=== PATIENT | male | born 1970 | race Caucasian/White ===

== ENCOUNTER 2020-04-29 12:33 | Emergency (ER) | payer OTHER, SELFPAY ==
--- NOTE | ~2020-04-29 | XR_ITS ---
EXAMINATION: XR finger 1st LT min 2V INDICATION: Left first finger pain TECHNIQUE: Four views of the left first finger are obtained. COMPARISON: None available FINDINGS: There is soft tissue swelling of the first finger. Bone alignment is normal. No fracture is identified. IMPRESSION: 1. Soft tissue swelling of the first finger without evidence of underlying osseous abnormality. Reviewed, dictated and finalized at location A. 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 Soft tissue swelling of the first finger without evidence of underlying osse ous abnormality.
[2020-04-29 12:43] VITALS: BP 120/64; PULSE 57; RESP 20; TEMP 36.1; O2SAT 99
[2020-04-29] MEDS: TETANUS,DIPHTHERIA,AC PERTUSSIS ADULT (0.5 ML) BOOSTRIX IM (13:03)
--- NOTE | 2020-04-29 13:38 | ED.SKABFB ---
HPI - Skin/Abscess/Foreign Bdy General Chief complaint: Wound/Laceration Stated complaint: wound/laceration Time Seen by Provider: 04/29/20 13:10 Source: patient and RN notes reviewed Mode of arrival: ambulatory Limitations: no limitations History of Present Illness HPI narrative: Patient presents today complaining of a laceration to his left first finger that was sustained 1 hour prior to arrival. States he was drilling a piece of aluminum on his drill press at home with a piece of aluminum slipped forward and his finger hit the drill bit. He also has a small wound in the webbing between the first and second finger. Denies numbness or tingling in the hand or fingers. Reports mild pain. He has tried no [id number] interventions or medications prior to arrival. MD complaint: laceration Related Data Home Medications Medication Instructions Recorded Confirmed atorvastatin [Lipitor] 80 mg PO DAILY 01/11/19 04/29/20 hydrochlorothiazide 25 mg PO DAILY 01/11/19 04/29/20 metoprolol tartrate [Lopressor] 25 mg PO DAILY 01/11/19 04/29/20 Allergies Allergy/AdvReac Type Severity Reaction Status Date / Time No Known Allergies Allergy Verified 01/11/19 12:29 Review of Systems Review of Systems: Narrative: CONSTITUTIONAL: Denies body aches, fever, chills, or sweats. EYES: Denies visual changes, redness, or discharge. ENT: Denies rhinorrhea, congestion, sore throat, or otalgia. CARDIOVASCULAR: Denies chest pain, palpitations, or edema. RESPIRATORY: Denies cough or dyspnea. GASTROINTESTINAL: Denies abdominal pain, nausea, vomiting, or diarrhea. GENITOURINARY: Denies dysuria or hematuria. SKIN: Denies rash, itching. + Finger laceration MUSCULOSKELETAL: Denies back pain, joint pain, or myalgia. NEUROLOGIC: Denies headache, numbness, tingling, or weakness. PSYCH: Denies depression or anxiety. FORMERLY [facility] Past Medical History Medical History (Updated 04/29/20 @ 14:[address] Funk, [facility], ) Hypercholesterolemia Hypertension Family History Family History (Updated 01/10/16 @ 14:13 by DOCTOR UNKNOWN) Father Family history of elevated blood lipids Social History Social History Smoking status: Never smoker Alcohol intake: current Gender identity (if verbalized by the patient): Male Comments At time of signature, I have reviewed and agree with nursing past medical, surgical, social and family history unless otherwise noted. Please see nursing chart for further information. There is no relevant family history pertinent to the presenting complaint Exam Narrative: Exam Narrative: GENERAL: Well-appearing, well-nourished, and in no acute distress. HEAD: Normocephalic, atraumatic. EYES: EOMI. No redness or drainage. Conjunctivae normal. ENT: Mucous membranes pink and moist. NECK: Normal AROM. CHEST: No respiratory distress. EXTREMITIES: Normal range of motion. No edema. SKIN: Warm, dry, no rash. Capillary refill normal. Normal skin turgor. 1cm round stellate superficial laceration to the base of the medial aspect of the left thumb. No active bleeding. ~0.5cm superficial skin avulsion to the webbing between 1st and 2nd fingers. Full AROM of the 1st finger against resistance. Distal sensation intact. Capillary refill normal. Radial pulse normal. NEURO: No focal deficits. Alert and oriented x3. Gait steady. PSYCH: Normal affect. No signs of depression or anxiety. Course Vital Signs Vital signs: Vital Signs Temperature 96.9 F L 04/29/20 12:43 Pulse Rate 57 L 04/29/20 12:43 Respiratory Rate 20 04/29/20 12:43 Blood Pressure 120/64 04/29/20 12:43 Pulse Oximetry 99 04/29/20 12:43 Temperature 96.9 F L 04/29/20 12:43 Pulse Rate 57 L 04/29/20 12:43 Respiratory Rate 20 04/29/20 12:43 Blood Pressure 120/64 04/29/20 12:43 Pulse Oximetry 99 04/29/20 12:43 Reviewed. Pt has been instructed to follow up with his PCP regarding his elevated blood pressure today. Edson
== END 2020-04-29 13:44 | disposition home or self-care (01) ==
PROVIDERS: Emergency Provider Nurse Practitioner
DX: S61.012A Laceration without foreign body of left thumb without damage to nail, initial encounter (principal); W29.8XXA Contact with other powered hand tools and household machinery, initial encounter; Z23 Encounter for immunization; E78.00 Pure hypercholesterolemia, unspecified; I10 Essential (primary) hypertension
CPT/HCPCS: 12001; 73140; 90471; 90715; 99213; G0463

== ENCOUNTER 2022-03-22 11:56 | Emergency (ER) | payer OTHER, SELFPAY ==
[2022-03-22 12:13] VITALS: BP 144/89; PULSE 67; RESP 18; TEMP 36.4; O2SAT 99
--- NOTE | 2022-03-22 12:26 | ED.EAR ---
HPI - Ear Problem General Chief complaint: Ear Stated complaint: bilateral ear pain Time Seen by Provider: 03/22/22 12:20 Source: patient Mode of arrival: ambulatory Limitations: no limitations History of Present Illness HPI Narrative: Pancho is a 51-year-old male patient presenting to the clinic today with complaints of bilateral ear pain since Friday. He reports he did have his ears cleaned out on Friday and started having right ear pain afterwards. He reports over the last few days the pain has gradually gotten worse. Has been taking some Sudafed to see if this helps alleviate the pressure/pain. Feels as though his ears are congested. Related Data Home Medications Medication Instructions Recorded Confirmed atorvastatin 80 mg tablet (Lipitor) 80 mg PO DAILY 01/11/19 03/22/22 hydrochlorothiazide 25 mg tablet 25 mg PO DAILY 01/11/19 03/22/22 metoprolol tartrate 50 mg tablet 25 mg PO DAILY 01/11/19 03/22/22 (Lopressor) Allergies Allergy/AdvReac Type Severity Reaction Status Date / Time No Known Allergies Allergy Verified 03/22/22 12:22 Review of Systems Review of Systems: Pertinent positives per HPI. Patient denies any fever, chills, rash, headache, visual changes, dizziness, cough, shortness of breath, chest pain, palpitations, nausea, vomiting, diarrhea, constipation, abdominal pain, or any urinary issues. PMFSH Past Medical History Medical History Hypercholesterolemia Hypertension Family History Family History Father Family history of elevated blood lipids Social History Social History Smoking status: Never smoker Alcohol intake: current Gender identity (if verbalized by the patient): Male Comments At the time of my signature, I reviewed and agree with the nursing past medical, surgical, social, and family history. There is no relevant family history pertinent to the patient complaint. Exam Narrative: General: Well-developed, well nourished, in no apparent distress Head: Normocephalic, atraumatic Eyes: Pupils equally round and reactive to light bilaterally, EOM intact, sclera and conjunctive clear, no discharge, lids normal Ears: Left TM intact and congested, right TM intact, bulging, red, right ear canal swollen with white exudate, left ear canalclear, grossly hearing normal. Nose: Nares patent, no discharge, no inflammation, no sinus tenderness. Mouth: Oral pharynx without lesions or masses, good dentition, MMM. Neck: Supple, trachea midline, no enlargement of anterior or posterior cervical nodes, no thyroid masses or goiter palpable. Cardio: Regular rate and rhythm, s1 and s2 normal, no murmur appreciated. Resp: Clear to auscultation bilaterally, no rhonchi, rales, wheezing or rubs Course Course Emergency Course: Portions of this record may have been created with voice recognition software. Level of Care: Express Care Visit Vital Signs Vital signs: Vital Signs Temperature 36.4 C 03/22/22 12:13 Pulse Rate 67 03/22/22 12:13 Respiratory Rate 18 03/22/22 12:13 Blood Pressure 144/89 H 03/22/22 12:13 Pulse Oximetry 99 03/22/22 12:13 Oxygen Delivery Room Air 03/22/22 12:13 Temperature 36.4 C 03/22/22 12:13 Pulse Rate 67 03/22/22 12:13 Respiratory Rate 18 03/22/22 12:13 Blood Pressure 144/89 H 03/22/22 12:13 Pulse Oximetry 99 03/22/22 12:13 Oxygen Delivery Room Air 03/22/22 12:13 Vital signs reviewed Medical Decision Making MDM Narrative Medical decision making narrative: At the time of the patient is resting comfortably on the exam table. I suspect the patient has eustachian tube dysfunction, otitis media the right ear and otitis externa the right ear. Prescription for amoxicillin, prednisone, and ofloxacin ear drops were sent to the pharmacy and
== END 2022-03-22 12:32 | disposition home or self-care (01) ==
PROVIDERS: Emergency Provider Nurse Practitioner Family
DX: H60.91 Unspecified otitis externa, right ear (principal); H66.91 Otitis media, unspecified, right ear; H69.93 Unspecified Eustachian tube disorder, bilateral; E78.00 Pure hypercholesterolemia, unspecified; I10 Essential (primary) hypertension
CPT/HCPCS: 99213; G0463

== ENCOUNTER 2022-11-30 08:57 | Outpatient (CLI) | payer OTHER, SELFPAY ==
--- NOTE | ~2022-11-30 | CT_ITS ---
EXAMINATION: CT sinus wo con DATE: 11/30/2022 09:38 INDICATION: Deviated nasal septum TECHNIQUE: Computed tomography (CT) of the paranasal sinuses was performed without intravenous contra st. The dose-length product was 334.42 mGy-cm. Automated exposure control and iterative reconstructio n technique were employed. COMPARISON: None FINDINGS: Rightward nasal septal deviation. There is a small air-fluid level in the left christpoher bullo sa. There are bilateral christopher bullosa. There is mild mucosal thickening of the ethmoid sinuses. Mast oids are pneumatized. Ostiomeatal units are patent. No mucoperiosteal reaction. Mastoids are pneumati zed. IMPRESSION: 1. Mild ethmoid sinus disease. Reviewed, dictated and finalized at location A.
== END 2022-11-30 08:58 | disposition home or self-care (01) ==
PROVIDERS: Visit Provider Otolaryngology
DX: J34.2 Deviated nasal septum (principal)
CPT/HCPCS: 70486

== ENCOUNTER → 2023-10-03 11:41 | Outpatient (CLI) | payer OTHER, SELFPAY ==
--- NOTE | ~2023-10-03 | XR_ITS ---
3 VIEWS LUMBAR SPINE Ordering provider: Eliza Sky NP History: . M54.50-Low back pain,worsening, unspecified,no injury . Comparison: None. FINDINGS: VERTEBRAL BODIES: No visible fracture or subluxation. DISK SPACES: Normal. SOFT TISSUES: Normal. IMPRESSION: No acute osseous abnormality lumbar spine. Reviewed, dictated and finalized at location A.
== END ==
LOC: EXPTRAD 11:43
PROVIDERS: PCP Nurse Practitioner Family; Visit Provider Nurse Practitioner Family
DX: M54.50 Low back pain, unspecified (principal)
CPT/HCPCS: 72110

== ENCOUNTER 2024-05-19 00:23 | Day surgery (SDC) | payer OTHER, SELFPAY ==
[2024-05-11 15:33] VITALS: BMI 31.1
--- OUTSIDE RECORDS SUMMARY | 2024-05-19 00:25 | XMS_ITS | Referral Summary ---
Author Organization [facility] [address] [facility] [address] Address [address] [place] [address] Care Team Providers Care Physician Assistant Certified Name Role Phone Jose DanielEliza GERSON Primary Care Provider [phone] Encounters Date Type Department Care Team Description 04/21/2024 Telephone [facility] Cardiology [address] [place] [address] Charles De Jesus MD from Last 3 Months Allergies Active Allergy Reactions Criticality Noted Date Comments Oxycodone Nausea & Vomiting Low 08/30/2016 Medications cholecalciferol (VITAMIN D-3) 2,000 unit capsule Take 1 capsule (2,000 Units total) by mouth daily Active multivit with min-folic acid 0.4 mg tablet Take by mouth daily. Active coenzyme Q10 10 mg capsule Take 1 capsule (10 mg total) by mouth daily Active TURMERIC, BULK, MISC Active levocetirizine (XYZAL) 5 mg tablet Take 1 tablet (5 mg total) by mouth every evening Active acetaminophen (TYLENOL) 500 mg tablet Take 1 tablet (500 mg total) by mouth every 6 (six) hours as needed for pain Active ibuprofen (ADVIL,MOTRIN) 200 mg tab/cap Take by mouth every 6 (six) hours as needed for pain. Active sildenafiL (VIAGRA) 50 mg tablet Take 1 tablet (50 mg total) by mouth daily as needed for erectile dysfunction Active metFORMIN XR (GLUCOPHAGE XR) 500 mg 24 hr tablet TAKE 1 TABLET BY MOUTH DAILY. THEN INCREASE BY 1 TABLET EACH WEEK TO GET TO 2 TABLETS TWICE DAILY 4 Active Rybelsus 7 mg tablet 4 Active rosuvastatin (CRESTOR) 20 mg tabletIndicatio ns:Hyperlipidem ia LDL goal <70 TAKE 1 TABLET(20 MG) BY MOUTH DAILY 90 tablet 3 4 Active metoprolol XL (TOPROL-XL) 50 mg extended release tablet TAKE 1 TABLET(50 MG) BY MOUTH DAILY 90 tablet 3 4 Active hydroCHLOROthia zide (HYDRODIURIL) 25 mg tablet TAKE 1 TABLET(25 MG) BY MOUTH DAILY 90 tablet 3 4 Active Active Problems Problem Noted Date Diagnosed Date Obesity (BMI 30.0-34.9) 02/06/2024 Obesity (BMI 35.0-39.9 without comorbidity) 12/09 ARMANDO (obstructive sleep apnea) 12/12/2017 HTN (hypertension), benign 11/05/2016 Hyperlipidemia LDL goal <70 11/05/2016 Elevated LFTs 11/05/2016 Low testosterone 11/05/2016 Social History Tobacco Use Types Packs/Day Years Used Date Smoking Tobacco: Never Smokeless Tobacco: Never Tobacco Cessation:Counseling Given: Not Answered Alcohol Use Standard Drinks/Week Comments No 0 (1 standard drink = 0.6 oz pur e alcohol) Sex and Gender Information Value Date Recorded Sex Assigned at Not on file Legal Sex Male 3:31 PM CDT Gender Identity Male 01/08/2024 2:47 PM CDT Sexual Orientation Not on file Last Filed Vital Signs Vital Sign Reading Time Taken Comments Blood Pressure 122/80 02/06/2024 7:52 AM 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 Pulse 74 02/06/2024 7:52 AM 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 Temperature - - Respiratory Rate 15 12/17/2019 8:23 AM CDT Oxygen Saturation 97% 02/06/2024 7:52 AM 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 Inhaled Oxygen Concentration - - Weight 112.3 kg (247 lb 9.6 oz) 02/06/2024 7:52 AM 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 Height 182.9 cm (6') 02/06/2024 7:52 AM 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 Body Mass Index 33.58 02/06/2024 7:52 AM 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 Plan of Treatment Not on file Insurance [employer] PPO [employer] PPO Care Teams Physician Assistant Certified Relationship Specialty Start Date End Date Eliza Sky NP [facility] [address] [address] PCP - General Family Medicine 02/06/24
--- OUTSIDE RECORDS SUMMARY | 2024-05-19 00:25 | XMS_ITS | Clinical Summary ---
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 Name Role Phone Jose DanielEliza GERSON Primary Care Provider Allergies Active Allergy Reactions Criticality Noted Date [...] MG) BY MOUTH DAILY 90 tablet 3 12/16/202 4 Active metoprolol XL (TOPROL-XL) 50 mg [...] 11/05/2016 Elevated LFTs 11/05/2016 Low testosterone 11/05/2016 Encounters Date Type Department Care Team Description 04/21/2024 Telephone [facility] Cardiology [address] [place] [address] Charles De Jesus MD from Last 3 Months Surgical History Surgery Date Site/Laterality Comments MARAL 2004 Medical History Medical History Date Comments Hypertension 1998 Family History Medical History Relation Name Comments Heart disease Father Pancho Scott Radicic Hyperlipidemia Father Pancho Scott Radicic Hypertension Father Pancho [place] Radic[facility] Cancer Maternal Grandfather Puma Moran Sr . Cancer Mother's Sister Mary Luisa Alcohol abuse Paternal Grandfather Pancho Radicic Heart attack Paternal Grandfather Pancho Radicic Heart disease Paternal Grandfather Pancho Radicic Kidney disease Paternal Grandmother Jacki Radicic Allergy (severe) Son 1 Brooklyn R. Radicic Depression Son 2 Pancho Birch Radicic Relation Name Status Comments Father Pancho Scott Radicic Maternal Grandfather Puma Moran Sr. Mother's Sister Mary Zebulon Paternal Grandfather Pancho Radicic Paternal Grandmother Jacki Radicic Son 1 Brooklyn R. Radicic Son 2 Pancho Delgadoshua Radicic Social History Tobacco Use Types Packs/Day Years [...] PM CDT Sexual Orientation Not on file Obstetrics History Last Filed Vital Signs Vital Sign Reading Time Taken Comments Blood Pressure 122/80 02/06/2024 7:52 AM POT TENDER Pulse 74 02/06/2024 7:52 AM POT TENDER Temperature - - Respiratory Rate 15 12/17/2019 8:23 AM CDT Oxygen Saturation 97% 02/06/2024 7:52 AM POT TENDER Inhaled Oxygen Concentration - - Weight 112.3 kg (247 lb 9.6 oz) 02/06/2024 7:52 AM POT TENDER Height 182.9 cm (6') 02/06/2024 7:52 AM POT TENDER Body Mass Index 33.58 02/06/2024 7:52 AM POT TENDER Plan of Treatment Health Maintenance Due Date Last Done Comments Colon Cancer Screening-Colonoscopy 1972 Depression Screening 1972 Hepatitis C Screening 1972 Prostate Cancer Screening-PSA 1972 DTaP/Tdap/Td Vaccine (1 - Tdap) 10/05/1983 Hepatitis B Screening 1990 Regular Well Visit/Exam 18-64 1990 Zoster Vaccine (1 of 2) 2022 Covid-19 Vaccine (3 - 2023-2 5 season) 2023 05/03/2020, 04/10/2020 Influenza Vaccine Completed 12/19/2023, 12/04/2017 Pneumococcal vaccine <65 Aged Out No longer eligible based on patient's age to complete this topic Insurance [employer] [place]PO [place] [address] Care Teams Ball Truing Machine Operator Relationship Specialty Start Date End Date Eliza Sky NP [address] [id number] PCP - General Family Medicine 02/06/24
--- OUTSIDE RECORDS SUMMARY | 2024-05-19 00:25 | XMS_ITS | Clinical Summary ---
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 Gender Identity Not on file Sexual Orientation Not on file Plan of Treatment Health Maintenance Due Date Last Done Comments Colorectal Cancer Screening Colonoscopy (10 Years) 1972 Annual Physical 10/05/1975 Hepatitis C 1990 DTaP, Tdap and Td Vaccines ( 1 - Tdap) 10/05/1991 Hepatitis B Vaccines (1 of 3 - 19+ 3-dose series) 10/05/1991 Zoster Vaccines (1 of 2) 2022 COVID-19 Vaccine (3 - 2023-2 5 season) 2023 05/03/2020, 04/10/2020 Influenza Adult (#1) 2023 01/02/2020, 02/25/2019 Meningococcal B Vaccine Aged Out No l onger eligible based on patient's age to complete this topic Meningococcal Vaccine Aged Out No kelvin galina eligible based on patient's age to complete this topic Pneumococcal Vaccine: Pediatrics (0 to 5 Years) and At-Risk Patients (6 to 64 Years) Aged Out No longer eligible b ased on patient's age to complete this topic RSV Immunizations Under 20 Months Aged Out No longer eligible b ased on patient's age to complete this topic
[2024-05-19 08:39] VITALS: BP 173/95; PULSE 78; RESP 18; TEMP 36.1; O2SAT 99; BMI 31.6
[2024-05-19 08:52] LABS: Glucose Point of Care 97 mg/dl (65-105)
[2024-05-19] MEDS: LACTATED RINGERS 1,000 ML 150 ML IV CONT (09:05)
--- NOTE | 2024-05-19 09:15 | WPDANESEPPF ---
Anes - Initial Pre Proc Eval Procedure: Operation Date: 05/19/24 10:00 Proposed Procedures p Esophagogastroduodenoscopy&Screen Colon - Bert Ibrahim MD Date/Time: 05/19/24 09:15 Surgeon: Bert Ibrahim MD Pre Op Diagnosis: screening colon, GERD, family hx of other disease Patient Data Age: 53 Gender: M Height: 1.85 m Weight: 108.9 kg Last Vital Signs Temp 36.1 C L 05/19/24 08:39 Pulse 78 05/19/24 08:39 Resp 18 05/19/24 08:39 BP 173/95 H 05/19/24 08:39 Pulse Ox 99 05/19/24 08:39 O2 Del Method Room Air 05/19/24 08:39 Allergies Allergy/AdvReac Type Severity Reaction Status Date / Time No Known Allergies Allergy Verified 05/19/24 08:37 Home Medications ?Medication ?Instructions ?Recorded ?Confirmed ?Type hydrochlorothiazide 25 mg tablet 25 mg PO DAILY 01/11/19 05/19/24 History acetaminophen 1,000 tablet PO DAILY PRN pain 10/03/23 05/11/24 History ashwagandha extract 1 tablet PO BID 10/03/23 05/19/24 History cholecalciferol (vitamin D3) 50 50 mcg PO BID 10/03/23 05/19/24 History mcg (2,000 unit) capsule coenzyme Q10 100 mg capsule 100 mg PO DAILY 10/03/23 05/19/24 History ibuprofen 4 tablet PO PRN PRN pain 10/03/23 05/11/24 History metoprolol succinate 50 mg 50 mg PO DAILY 10/03/23 05/19/24 History tablet,extended release 24 hr omeprazole 20 mg capsule,delayed 20 mg PO DAILY 10/03/23 05/19/24 History release rosuvastatin 20 mg tablet 20 mg PO DAILY 10/03/23 05/19/24 History sildenafil (pulm.hypertension) 20 40 mg PO DAILY PRN sexual activity 10/03/23 05/11/24 History mg tablet metformin 500 mg tablet,extended See Rx Instructions PO BID #120 10/29/23 05/19/24 Rx release 24 hr tabs semaglutide 14 mg tablet 14 mg PO DAILY #30 tabs 04/16/24 05/11/24 Rx syringe with needle 3 mL 23 gauge #2 ea 04/26/24 Rx x 1 1/2 (BD Luer-Beck Syringe) testosterone cypionate 100 mg/mL 100 mg IM .S2zvfoi #2 mL 04/26/24 05/11/24 Rx intramuscular oil multivitamin 1 tablet PO DAILY 05/11/24 05/19/24 History tumeric 1 cap BYMOUTH DAILY 05/11/24 05/19/24 History Laboratory Tests 05/19/24 08:43 POC Capillary Glucose 97 mg/dl (65-105) Patient hx anesthesia problems: none Family hx anesthesia problems: none Results Review: All pre-operative results and documents have been reviewed as part of the pre-operative evaluation. [facility] Past Medical History Medical History Long-term current use of testosterone replacement therapy Hypogonadism in male BMI 31.0-31.9,adult Diabetes mellitus Encounter for screening colonoscopy Family history of Landeros's esophagus Chronic GERD Erectile dysfunction Hyperlipidemia BMI 37.0-37.9, adult Low back pain radiating to right lower extremity Hypertension Hypercholesterolemia Surgical History Surgical History Hx of LASIK (~2004) H/O nasal septoplasty (~2022) Family History Family History Father Family history of elevated blood lipids Heart disease Hypertension Grandparent Cancer Grandparent Alcoholism Heart disease Hypertension Social History Social History Smoking status: Never smoker Alcohol intake: never Substance use: never Substance use type: does not use Gender identity (if verbalized by the patient): Male Anes - Eval Final PreProcedure Day of Procedure 05/19/24 09:15 Patient weight: obese Heart: regular rate and rhythm Lungs: clear to auscultation Airway: Mallampati scale class II Neurological: alert and oriented Last oral intake: >/= 8 hours ASA classification: III Emergent: no Anesthetic plan: proceed Anesthesia type and monitoring: general GIVS and standard monitoring Results Review: All pre-operative results and documents have been reviewed as part of the pre-operative evaluation. Informed Consent: The patient's anesthetic plan and its attendant risks and benefits were discussed with the patient/family/POA. Questions were solicited and answers provided to the satisfaction of the patient/family/POA.
--- NOTE | 2024-05-19 09:30 | PM.HPGS ---
History of Present Illness History of Present Illness Consent: Risks, benefits, and alternatives have been discussed and questions answered. Patient agrees to proceed with procedure. Chief complaint: screening colon, GERD, family hx of other disease Narrative: Pancho Doshi is a 53 year old male here for first screening colonoscopy and EGD (h/o GERD for years controlled with daily omeprazole) Review of Systems Review of Systems: All systems reviewed & are unremarkable except as noted in HPI and below PMFSH Past Medical History Medical History Long-term current use of testosterone replacement therapy Hypogonadism in male BMI 31.0-31.9,adult Diabetes mellitus Encounter for screening colonoscopy Family history of Landeros's esophagus Chronic GERD Erectile dysfunction Hyperlipidemia BMI 37.0-37.9, adult Low back pain radiating to right lower extremity Hypertension Hypercholesterolemia Surgical History Surgical History Hx of LASIK (~2004) H/O nasal septoplasty (~2022) Family History Family History Father Family history of elevated blood lipids Heart disease Hypertension Grandparent Cancer Grandparent Alcoholism Heart disease Hypertension Social History Social History Smoking status: Never smoker Alcohol intake: never Substance use: never Substance use type: does not use Gender identity (if verbalized by the patient): Male Meds Home Medications and Allergies Home Medications ?Medication ?Instructions ?Recorded ?Confirmed ?Type hydrochlorothiazide 25 mg tablet 25 mg PO DAILY 01/11/19 05/19/24 History acetaminophen 1,000 tablet PO DAILY PRN pain 10/03/23 05/11/24 History ashwagandha extract 1 tablet PO BID 10/03/23 05/19/24 History cholecalciferol (vitamin D3) 50 50 mcg PO BID 10/03/23 05/19/24 History mcg (2,000 unit) capsule coenzyme Q10 100 mg capsule 100 mg PO DAILY 10/03/23 05/19/24 History ibuprofen 4 tablet PO PRN PRN pain 10/03/23 05/11/24 History metoprolol succinate 50 mg 50 mg PO DAILY 10/03/23 05/19/24 History tablet,extended release 24 hr omeprazole 20 mg capsule,delayed 20 mg PO DAILY 10/03/23 05/19/24 History release rosuvastatin 20 mg tablet 20 mg PO DAILY 10/03/23 05/19/24 History sildenafil (pulm.hypertension) 20 40 mg PO DAILY PRN sexual activity 10/03/23 05/11/24 History mg tablet metformin 500 mg tablet,extended See Rx Instructions PO BID #120 10/29/23 05/19/24 Rx release 24 hr tabs semaglutide 14 mg tablet 14 mg PO DAILY #30 tabs 04/16/24 05/11/24 Rx syringe with needle 3 mL 23 gauge #2 ea 04/26/24 Rx x 1 1/2 (BD Luer-Beck Syringe) testosterone cypionate 100 mg/mL 100 mg IM .[id number] #2 mL 04/26/24 05/11/24 Rx intramuscular oil multivitamin 1 tablet PO DAILY 05/11/24 05/19/24 History tumeric 1 cap BYMOUTH DAILY 05/11/24 05/19/24 History Allergies Allergy/AdvReac Type Severity Reaction Status Date / Time No Known Allergies Allergy Verified 05/19/24 08:37 Vital Signs Vital Signs - 24 hr 05/19/24 08:39 Temperature 97 F L Pulse Rate 78 Respiratory Rate 18 Blood Pressure 173/95 H Pulse Oximetry 99 Oxygen Delivery Room Air Exam Const: General: comfortable and no acute distress HENMT: Face/Nose/Sinus: Normal nares present Eyes: General: appearance normal, both eyes and all related structures Neck: Neck: no JVD Resp: Auscultation: clear to auscultation bilaterally Cardio: Rate: regular rate Rhythm: regular rhythm GI: Inspection: non-distended GI Palp: Yes Soft to palpation Skin: General skin exam: normal color Neuro: Speech: normal speech Extrem: General: normal to inspection Psych: Mental Status: mental status grossly normal Assessment and Plan Assessment and plan (1) Chronic GERD: Code(s): K21.9 - Gastro-esophageal reflux disease without esophagitis Status: Acute Assessment and Plan: egd (2) Encounter for screening colonoscopy: Code(s): Z12.11 - Encounter for screening for malignant neoplasm of colon Status: Acute Assessment and Plan: colonoscopy
--- NOTE | 2024-05-19 09:45 | SUR.OPER ---
EGD: end 939, COLON: start 943
[2024-05-19 10:05] VITALS: BP 105/69; PULSE 74; RESP 18; O2SAT 95
[2024-05-19 10:15] VITALS: BP 109/73; PULSE 83; RESP 25; O2SAT 98
[2024-05-19 10:25] VITALS: BP 131/86; PULSE 75; RESP 18; O2SAT 100
== END 2024-05-19 10:39 | disposition home or self-care (01) ==
PROVIDERS: PCP Nurse Practitioner Family; Referring Provider Nurse Practitioner Family; Visit Provider Internal Medicine Gastroenterology
PROC: 0DJ08ZZ Inspection of Upper Intestinal Tract, Via Natural or Artificial Opening Endoscopic (ICD-10-PCS; CPT 45378; principal; 2024-05-19 10:00)
DX: Z12.11 Encounter for screening for malignant neoplasm of colon (principal); D12.3 Benign neoplasm of transverse colon; K51.40 Inflammatory polyps of colon without complications; K21.00 Gastro-esophageal reflux disease with esophagitis, without bleeding; K44.9 Diaphragmatic hernia without obstruction or gangrene; K31.89 Other diseases of stomach and duodenum; I10 Essential (primary) hypertension; E29.1 Testicular hypofunction; E11.9 Type 2 diabetes mellitus without complications; N52.9 Male erectile dysfunction, unspecified; E66.9 Obesity, unspecified; Z68.31 Body mass index [BMI] 31.0-31.9, adult; Z79.1 Long term (current) use of non-steroidal anti-inflammatories (NSAID); Z79.84 Long term (current) use of oral hypoglycemic drugs; Z79.890 Hormone replacement therapy; Z98.890 Other specified postprocedural states; Z83.79 Family history of other diseases of the digestive system; Z80.9 Family history of malignant neoplasm, unspecified; Z82.49 Family history of ischemic heart disease and other diseases of the circulatory system
CPT/HCPCS: 43239; 45380; 45385; 82948; 88305; J2003; J2704; J7120